=== PATIENT | female | born 1975 ===

== ENCOUNTER 2018-04-30 14:00 | Emergency (ER) | payer MEDICAID, OTHER ==
[2018-04-30 14:26] VITALS: BP 125/82; PULSE 76; RESP 18; TEMP 98; O2SAT 98
[2018-04-30 15:42] LABS: BASO % 0.5 % (0.0-2.0); EOS # 0.1 K/uL (0.0-0.7); EOS % 1.4 % (0.0-4.0); HEMOGLOBIN 12.9 g/dL (12.0-16.0); LYMPH # 1.5 K/uL (1.0-4.3); LYMPH % 23.5 % (20.0-40.0); MEAN CELL VOLUME 90.4 fl (81.0-99.0); MEAN CORPUSCULAR HEMOGLOBIN 30.4 pg (27.0-31.0); MEAN CORPUSCULAR HGB CONC 33.6 g/dL (33.0-37.0); MONO # 0.3 K/uL (0.0-0.8); MONO % 5.2 % (0.0-10.0); NEUT # 4.5 K/uL (1.8-7.0); NEUT % 69.4 % (50.0-75.0); RBC 4.23 Mil/uL (3.80-5.20); WHITE BLOOD COUNT 6.6 K/uL (4.8-10.8)
--- NOTE | 2018-04-30 16:03 | ED PDOC ---
HPI: Abdomen Time Seen by Provider: 04/30/18 14:38 Chief Complaint (Nursing): Abdominal Pain Chief Complaint (Provider): Abdominal Pain History Per: Patient History/Exam Limitations: no limitations Onset/Duration Of Symptoms: Days (x3) Additional Complaint(s): 42 year old female, post-op for twins last fall, arrives to ED with a complaint of right upper abdominal pain radiating to her right shoulder for 3 days. Patient states symptoms were initially intermittent then became constant. She denies any nausea, vomiting, diarrhea, or prior similar episodes. Patient has a history of ICU admission for cardiomyopathy and has been medically cleared by her joint cutter machine recently. PMD: Dr. Fito Soriano Past Medical History Reviewed: Historical Data, Nursing Documentation, Vital Signs Vital Signs: Last Vital Signs Temp 98 F 04/30/18 14:23 Pulse 76 04/30/18 14:23 Resp 18 04/30/18 14:23 BP 125/82 04/30/18 14:23 Pulse Ox 98 04/30/18 16:17 - Medical History Other PMH: cardiomyopathy - Surgical History Surgical History: (x1) - Family History Family History: States: Other Other Family History: gallstones - Social History Current smoker - smoking cessation education provided: No Alcohol: None Drugs: Denies - Home Medications Home Medications: Ambulatory Orders Medication Instructions Recorded Naproxen [Naprosyn] 375 mg PO TIDPC #20 tab 04/20/15 - Allergies Allergies/Adverse Reactions: Allergies Allergy/AdvReac Type Severity Reaction Status Date / Time No Known Allergies Allergy Unverified 04/30/18 14:23 Review of Systems ROS Statement: Except As Marked, All Systems Reviewed And Found Negative Gastrointestinal: Positive for: Abdominal Pain (upper right). Negative for: Nausea, Vomiting, Diarrhea Musculoskeletal: Positive for: Shoulder Pain (right-sided) Physical Exam - Reviewed Nursing Documentation Reviewed: Yes Vital Signs Reviewed: Yes - Physical Exam Appears: Positive for: Non-toxic, No Acute Distress Head Exam: Positive for: ATRAUMATIC, NORMAL INSPECTION, NORMOCEPHALIC Skin: Positive for: Normal Color Eye Exam: Positive for: Normal appearance ENT: Positive for: Normal ENT Inspection Neck: Positive for: Normal Cardiovascular/Chest: Positive for: Regular Rate, Rhythm Respiratory: Positive for: Normal Breath Sounds. Negative for: Respiratory Distress Gastrointestinal/Abdominal: Positive for: Soft, Tenderness (RUQ) Back: Positive for: Normal Inspection. Negative for: L CVA Tenderness, R CVA Tenderness Extremity: Positive for: Normal ROM (upper/lower). Negative for: Pedal Edema Neurologic/Psych: Positive for: Alert, hairspring vibrator II-XII (grossly intact), Oriented. Negative for: Motor/Sensory Deficits - Laboratory Results Result Diagrams: 04/30/18 15:35 04/30/18 15:35 - ECG O2 Sat by Pulse Oximetry: 98 (RA) Pulse Ox Interpretation: Normal Medical Decision Making Medical Decision Making: Initial Impression: 42 y/o old female with RUQ pain. Initial Plan: --W/u for biliary colic and other causes for abdominal pain. --Obtain urine, labs and US ABD. --Toradol additionally ordered. Time: 1521 --Urine: negative for or active infection. --Labs: no significant clinical abnormality. Time: 1639 --US ABD FINDINGS: LIVER: Measures 16.3 cm. Patent portal vein. Portal venous flow: Hepatopetal. Unremarkable echogenicity of the liver parenchyma. No mass. No intrahepatic bile duct dilatation. GALLBLADDER: Unremarkable. No gallstones. COMMON BILE DUCT: Measures 3.45 mm. No stones. No dilatation. PANCREAS: Unremarkable as visualized. No mass. No ductal dilatation. RIGHT KIDNEY: Measures 5.2 x 10.8cm. Normal echogenicity. No calculus, mass, or hydronephrosis. LEFT KIDNEY: Measures 5.7 x 10.9cm. Normal echogenicity. No calculus, mass, or hydronephrosis. SPLEEN: Normal in size and contour. No mass. AORTA: No aneurysmal dilatation. IVC: Unremarkable. OTHER FINDINGS: None. IMPRESSION: No significant or acute findings to account for/ related to the clinical presentation. Scribe Attestation: Documented by Soumya Dempsey, acting as a scribe for David Schwartz III, DO. Provider Scribe Attestation: All medical record entries made by the Scribe were at my direction and personally dictated by me. I have reviewed the chart and agree that the record accurately reflects my personal performance of the history, physical exam, medical decision making, and the department course for this patient. I have also personally directed, reviewed, and agree with the discharge instructions and disposition. Disposition - Disposition Forms: [employer] (Turkish)
[2018-04-30 16:11] LABS: SQUAMOUS EPITHIAL 1 /hpf (0-5); URINE BACTERIA RARE (<OCC); URINE BILIRUBIN NEGATIVE (NEGATIVE); URINE BLOOD NEGATIVE (NEGATIVE); URINE CLARITY SLIGHTY-CLOUDY (Clear); URINE COLOR YELLOW (YELLOW); URINE GLUCOSE (UA) NEG (Normal); URINE LEUKOCYTE ESTERASE NEG Leu/uL (Negative); URINE PROTEIN NEGATIVE (NEGATIVE); URINE UROBILINOGEN 0.2-1.0 mg/dL (0.2-1.0)
[2018-04-30 16:15] LABS: ALB/GLOB RATIO 1.4 (1.0-2.1); ALBUMIN 4.5 g/dL (3.5-5.0); ALT/SGPT 27 U/L (9-52); AST/SGOT 31 U/L (14-36); BLOOD UREA NITROGEN 12 mg/dl (7-17); CALCIUM 9.8 mg/dL (8.4-10.2); GFR AFRICAN-AMERICAN > 60; GFR NON-AFRICAN AMERICAN > 60; LIPASE 72 U/L (23-300)
--- NOTE | 2018-04-30 16:41 | US ---
Date of service: 04/30/2018 HISTORY: RUQ pain COMPARISON: None. TECHNIQUE: Sonographic evaluation of the abdomen. FINDINGS: LIVER: Measures 16.3 cm. Patent portal vein. Portal venous flow: Hepatopetal. Unremarkable echogenicity of the liver parenchyma. No mass. No intrahepatic bile duct dilatation. GALLBLADDER: Unremarkable. No gallstones. COMMON BILE DUCT: Measures 3.45 mm. No stones. No dilatation. PANCREAS: Unremarkable as visualized. No mass. No ductal dilatation. RIGHT KIDNEY: Measures 5.2 x 10.8cm. Normal echogenicity. No calculus, mass, or hydronephrosis. LEFT KIDNEY: Measures 5.7 x 10.9cm. Normal echogenicity. No calculus, mass, or hydronephrosis. SPLEEN: Normal in size and contour. No mass. AORTA: No aneurysmal dilatation. IVC: Unremarkable. OTHER FINDINGS: None. IMPRESSION: No significant or acute findings to account for/ related to the clinical presentation.
[2018-04-30] MEDS ORDERED: Iohexol 240 (50 ml) PO ONE (17:18)
--- NOTE | 2018-04-30 18:26 | RAD ---
Date of service: 04/30/2018 HISTORY: R upper abd pain COMPARISON: GoNo prior. TECHNIQUE: Chest PA and lateral FINDINGS: LUNGS: No active pulmonary disease. PLEURA: No significant pleural effusion identified. No pneumothorax apparent. CARDIOVASCULAR: Normal. OSSEOUS STRUCTURES: No significant abnormalities. VISUALIZED UPPER ABDOMEN: Normal. OTHER FINDINGS: None. IMPRESSION: No active disease.
--- NOTE | 2018-04-30 19:45 | ED PDOC ---
- Laboratory Results Result Diagrams: 04/30/18 15:35 04/30/18 15:35 - ECG O2 Sat by Pulse Oximetry: 98 (RA) Medical Decision Making Medical Decision Making: Time: 1999 --Patient endorsed to provider by Dr. Schwartz, pending CT ABD results. If negative, will refer for outpatient follow up. Time: 2049 --CT ABD/pelvis FINDINGS: Lung bases: Unremarkable. No mass. No consolidation. ABDOMEN: Liver: Unremarkable. No mass. Gallbladder and bile ducts: Unremarkable. No calcified stones. No ductal dilation. Pancreas: Unremarkable. No mass. No ductal dilation. Spleen: Unremarkable. No splenomegaly. Adrenals: Unremarkable. No mass. Kidneys and ureters: Unremarkable. No solid mass. No hydronephrosis. Stomach and bowel: Unremarkable. No obstruction. No mucosal thickening. PELVIS: Appendix: The appendix is normal. Bladder: Unremarkable. No mass. Reproductive: Unremarkable as visualized. ABDOMEN and PELVIS: Intraperitoneal space: Trace fluid in the pelvis. No free air. Bones/joints: No acute fracture. No dislocation. Soft tissues: Small right hemiabdomen 1 x 0.6 cm ovoid focus of lipomatous infiltration may reflect a small area of age indeterminate omental infarct at the level of the umbilicus on image 82 of series 3. Vasculature: Unremarkable. No abdominal aortic aneurysm. Lymph nodes: Unremarkable. No enlarged lymph nodes. IMPRESSION: Small right hemiabdomen 1 x 0.6 cm ovoid focus of lipomatous infiltration at the level of the umbilicus on image 82 of series 3 may reflect a small area of age indeterminate omental infarct . Otherwise no acute obstructive or inflammatory process in the abdomen or pelvis. Time: 2125 --Consult for surgeon on-call ordered based on CT findings. Time: 2132 --Discussed case with Dr. Pappas, covering for Dr. Grider, whom reviewed CT results. He said that this finding is not surgical issue. He believes it most likely epiploic appendagitis - no further treatment for this. Recommends NSAID. pt will follow up as outpt w pcp, Dr. Soriano. Explained results to patient, and she is agreeable with plan. Patient will be discharged home. Counseling was provided and all questions were answered regarding diagnosis. There is agreement to discharge plan. Return if symptoms persist or worsen. Clinical Impression: Abdominal pain Scribe Attestation: Documented by Soumya Dempsey, acting as a scribe for Lily Ledesma MD. Provider Scribe Attestation: All medical record entries made by the Scribe were at my direction and personally dictated by me. I have reviewed the chart and agree that the record accurately reflects my personal performance of the history, physical exam, medical decision making, and the department course for this patient. I have also personally directed, reviewed, and agree with the discharge instructions and disposition. Disposition Discussed With : Leonid Pappas Counseled Patient/Family Regarding: Studies Performed, Diagnosis, Need For Followup - Clinical Impression Clinical Impression: Abdominal pain - POA Present On Arrival: None - Disposition Disposition: Routine/Home Disposition Time: 21:40 Condition: IMPROVED Additional Instructions: follow up with Dr Soriano in 1-2 days take motrin for pain as needed return to the ED with any worsening or concerning symptoms Instructions: Stomach Ache and Stomach Upset Forms: [employer] (Bahraini)
[2018-04-30] MEDS ORDERED: Iohexol 300 100 ML IJ ONE (19:52)
[2018-04-30] MEDS ORDERED: Sodium Chloride 0.9% 50 ML IV ONE (19:52)
--- NOTE | 2018-05-01 10:36 | CT ---
Date of service: 04/30/2018 PROCEDURE: CT Abdomen and Pelvis with contrast HISTORY: R sided abd pain x5 days COMPARISON: None. TECHNIQUE: Contrast dose: Radiation dose: Total exam DLP = mGy-cm. This CT exam was performed using one or more of the following dose reduction techniques: Automated exposure control, adjustment of the mA and/or kV according to patient size, and/or use of iterative reconstruction technique. FINDINGS: LOWER THORAX: Unremarkable. LIVER: Unremarkable. No gross lesion or ductal dilatation. GALLBLADDER AND BILE DUCTS: Unremarkable. PANCREAS: Unremarkable. No gross lesion or ductal dilatation. SPLEEN: Unremarkable. ADRENALS: Unremarkable. No mass. KIDNEYS AND URETERS: Unremarkable. No hydronephrosis. No solid mass. VASCULATURE: Unremarkable. No aortic aneurysm. BOWEL: Findings in the distal ileum consistent with ileitis/ enteritis. No mechanical obstruction. APPENDIX: Normal appendix. PERITONEUM: Unremarkable. No free fluid. No free air. LYMPH NODES: Unremarkable. No enlarged lymph nodes. BLADDER: Unremarkable. REPRODUCTIVE: Unremarkable. BONES: No acute fracture. OTHER FINDINGS: Periumbilical hernia containing fat only. IMPRESSION: Mild ileitis without mechanical obstructing process. No abnormalities cecum/ileocecal valve region. Concordant results (preliminary interpretation) provided by [facility]. Procedure Completed: 20:18 Preliminary ([facility]) Report: Dictated and Authenticated: 20:50 Final Interpretation:
== END 2018-04-30 21:55 | disposition home or self-care (01) ==
LOC: H.ER 14:00
DX: R10.11 Right upper quadrant pain (principal); I42.9 Cardiomyopathy, unspecified
CPT/HCPCS: 71046; 74177; 76700; 80053; 81003; 81025; 83690; 85025; 99284; Q9966; Q9967